=== PATIENT | female | born 1945 | race Two or more races ===

== ENCOUNTER 2021-07-26 07:28 | Outpatient (CLI) | payer OTHER ==
[~2021-07-26 07:28] MED LIST: AMOX1TAB12 PO; DIOVAN HCT 161 UDTAB PO; URETRON DS1 TAB PO
== END 2021-07-26 07:38 | disposition home or self-care (01) ==
LOC: LAB 07:28
DX: R51.9 Headache, unspecified (principal)

== ENCOUNTER 2021-10-25 09:29 | Outpatient (CLI) | payer OTHER | END 2021-10-25 09:33 | disposition home or self-care (01) | LOC: LAB 09:29 | DX: E78.5 Hyperlipidemia, unspecified (principal); N39.0 Urinary tract infection, site not specified; I10 Essential (primary) hypertension; R10.2 Pelvic and perineal pain; E55.9 Vitamin D deficiency, unspecified; Z00.00 Encounter for general adult medical examination without abnormal findings ==

== ENCOUNTER 2021-10-25 10:27 | Outpatient (CLI) | payer OTHER | END 2021-10-25 10:34 | disposition home or self-care (01) | LOC: MAMO-SONO 10:27 | DX: M54.9 Dorsalgia, unspecified (principal); N64.4 Mastodynia ==

== ENCOUNTER 2021-11-01 12:10 | Outpatient (CLI) | payer OTHER | END 2021-11-01 12:13 | disposition home or self-care (01) | LOC: SONOGRAMA 12:10 | PROVIDERS: ATTEND General Practice | DX: N64.4 Mastodynia (principal) ==

== ENCOUNTER 2022-03-17 07:37 | Outpatient (CLI) | payer OTHER | END 2022-03-17 07:41 | disposition home or self-care (01) | LOC: LAB 07:37 | PROVIDERS: ATTEND General Practice | DX: E78.5 Hyperlipidemia, unspecified (principal); I10 Essential (primary) hypertension; Z00.00 Encounter for general adult medical examination without abnormal findings; E55.9 Vitamin D deficiency, unspecified; N39.0 Urinary tract infection, site not specified; R10.9 Unspecified abdominal pain ==

== ENCOUNTER 2022-04-13 10:27 | Outpatient (CLI) | payer OTHER | END 2022-04-13 10:33 | disposition home or self-care (01) | LOC: SONOGRAMA 10:27 | PROVIDERS: ATTEND General Practice | DX: R94.6 Abnormal results of thyroid function studies (principal); R05.8 Other specified cough ==

== ENCOUNTER → 2022-04-13 13:08 | Outpatient (CLI) | payer OTHER | END | disposition home or self-care (01) | LOC: LAB 13:08 | PROVIDERS: ATTEND General Practice | DX: N39.0 Urinary tract infection, site not specified (principal) ==

== ENCOUNTER 2022-10-17 10:03 | Outpatient (CLI) | payer OTHER | END 2022-10-17 10:06 | disposition home or self-care (01) | LOC: RAD 10:03 | PROVIDERS: ATTEND General Practice | DX: M54.9 Dorsalgia, unspecified (principal) ==

== ENCOUNTER 2022-10-27 07:43 | Outpatient (CLI) | payer OTHER | END 2022-10-27 07:45 | disposition home or self-care (01) | LOC: LAB 07:43 | PROVIDERS: ATTEND General Practice | DX: Z00.00 Encounter for general adult medical examination without abnormal findings (principal); E78.5 Hyperlipidemia, unspecified; E55.9 Vitamin D deficiency, unspecified; R10.9 Unspecified abdominal pain; N39.0 Urinary tract infection, site not specified; R42 Dizziness and giddiness; Z91.041 Radiographic dye allergy status ==

== ENCOUNTER 2023-01-18 10:47 | Outpatient (CLI) | payer OTHER | END 2023-01-18 10:51 | disposition home or self-care (01) | LOC: RAD 10:47 | PROVIDERS: ATTEND General Practice | DX: M25.532 Pain in left wrist (principal); N64.4 Mastodynia; Z12.31 Encounter for screening mammogram for malignant neoplasm of breast ==

== ENCOUNTER 2023-01-31 13:12 | Outpatient (CLI) | payer OTHER | END 2023-01-31 13:37 | disposition home or self-care (01) | LOC: NUCLEAR 13:12 | PROVIDERS: ATTEND General Practice | DX: M85.80 Other specified disorders of bone density and structure, unspecified site (principal) ==

== ENCOUNTER 2023-02-10 07:10 | Outpatient (CLI) | payer OTHER ==
[2023-02-10 08:12] LABS: PH,URINE 5.5 (5.0-8.0); URINE APPEARANCE Clear; URINE BILIRRUBIN Negative (NEGATIVE); URINE BLOOD Moderate; URINE COLOR Yellow; URINE GLUCOSE Negative (NEGATIVE); URINE LEUKOCYTE Moderate; URINE NITRATE Positive; URINE PROTEIN Negative (NEGATIVE)
[2023-02-10 08:14] LABS: URINE EPITHELIAL CELLS 14.6 uL (0.0-38.8); URINE RBC 7.1 uL (0.0-20.8)
[2023-02-10 08:28] LABS: HEMATOCRIT 35.4 % (36.0-45.00); HEMOGLOBIN 11.9 g/dL (12.0-15.00); MEAN CELL VOLUME 93.9 fL (80.00-100.00); MEAN CORPUSCULAR HEMOGLOBIN 31.7 pg (27.00-32.0); MEAN CORPUSCULAR HGB CONC 33.7 g/dl (32.0-36.0); PLATELET COUNT 162 K/uL (150-450); RED BLOOD COUNT 3.77 M/uL (4.00-6.00); RED CELL DISTRIBUTION WIDTH 13.1 % (11.5-14.5)
[2023-02-10 08:30] LABS: URINE BACTERIA > 9821.5 uL (0.0-1933)
[2023-02-10 09:16] LABS: ALBUMIN 3.6 gm/dL (3.4-5.0); BILIRUBIN TOTAL 0.71 mg/dL (0.3-1.2); BILIRUBIN,CONJUGATED 0.16 mg/dL (0.0-0.2); BILIRUBIN,UNCONJUGATED 0.55 mg/dL (0.0-0.6); CHOL HDL RATIO 4.1 (0-5.0); CREATININE SERUM 0.79 mg/dL (0.55-1.02); FREE TRIODOTIRONINE 2.38 pg/ml (2.18-3.98); GFR 70.2; GLOBULINA 3.7 G/DL (2.4-3.5); POTASSIUM 4.23 mEq/L (3.5-5.1); T4 FREE 0.92 NG/ML (0.76-1.46); T4 TOTAL 8.49 UG/DL (4.8-13.9); TOTAL PROTEIN 7.3 gm/dL (6.4-8.2); TSH 1.96 uIU/mL (0.358-3.74)
== END 2023-02-10 07:12 | disposition home or self-care (01) ==
LOC: LAB 07:10
PROVIDERS: ATTEND General Practice
DX: Z00.00 Encounter for general adult medical examination without abnormal findings (principal); E78.5 Hyperlipidemia, unspecified; E55.9 Vitamin D deficiency, unspecified; N39.0 Urinary tract infection, site not specified; R42 Dizziness and giddiness; R10.9 Unspecified abdominal pain; R10.2 Pelvic and perineal pain

== ENCOUNTER 2023-02-22 10:56 | Outpatient (CLI) | payer OTHER ==
[2023-02-22 12:12] LABS: PH,URINE 5.5 (5.0-8.0); URINE APPEARANCE Cloudy; URINE BILIRRUBIN Negative (NEGATIVE); URINE BLOOD Small; URINE COLOR Yellow; URINE GLUCOSE Negative (NEGATIVE); URINE LEUKOCYTE Large; URINE NITRATE Positive; URINE PROTEIN Negative (NEGATIVE)
[2023-02-22 12:13] LABS: URINE EPITHELIAL CELLS 4.9 uL (0.0-38.8); URINE RBC 11.7 uL (0.0-20.8); URINE WBC 1877.5 uL (0.0-23.2)
[2023-02-22 12:44] LABS: URINE BACTERIA > 9821.2 uL (0.0-1933)
== END 2023-02-22 10:57 | disposition home or self-care (01) ==
LOC: LAB 10:56
PROVIDERS: ATTEND General Practice
DX: N39.0 Urinary tract infection, site not specified (principal)